=== PATIENT | female | born 1940 | race African-American/Black ===

== ENCOUNTER 2018-08-18 18:52 | Inpatient (IN) | payer MEDICARE, MEDICAID ==
[~2018-08-18] VITALS: Ht 154.9 cm; Wt 47.2 kg
--- NOTE | 2018-08-18 19:20 | NUR ---
PT BIB PA FROM SNF WITH A C/O THAT THE PT HAD WANDERED FROM THE SNF AND WAS "MISSING". PT RETURNED TO THE SNF AND WAS DISORIENTED AND AGGRESSIVE TOWARDS STAFF. PT DOES NOT KNOW WHY SHE IS HERE. 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 PT IS HERE FOR MEDICAL CLEARANCE AND ADMISSION TO [facility]. SITTER IS AT THE BEDSIDE.
[2018-08-18 19:32] LABS: BASOPHILS % (AUTO) 0.7 % (0.0-2.0); EOSINOPHILS % (AUTO) 1.1 % (0.0-6.0); HEMATOCRIT 32 % (33-45); HEMOGLOBIN 10.8 g/dL (11.5-14.8); LYMPHOCYTES # (AUTO) 1.4 /CMM (0.8-4.8); LYMPHOCYTES % (AUTO) 41.2 % (20.0-44.0); MEAN CORPUSCULAR HGB CONC 33 g/dl (31.0-36.0); MEAN CORPUSCULAR VOLUME 90 fL (82-100); MONOCYTES # (AUTO) 0.3 /CMM (0.1-1.30); MONOCYTES % (AUTO) 8.2 % (2.0-12.0); NEUTROPHILS # (AUTO) 1.7 /CMM (1.8-8.9); NEUTROPHILS % (AUTO) 48.8 % (43.0-81.0); PLATELET COUNT (AUTO) 234 /CMM (150-450); RED BLOOD CELL COUNT(AUTO) 3.61 MIL/uL (4.0-5.2); WHITE BLOOD COUNT (AUTO) 3.5 K/uL (4.3-11.0)
[2018-08-18 19:39] LABS: CALCIUM, SERUM 9.2 mg/dL (8.5-10.1); CARBON DIOXIDE 27 mmol/L (21-32); CHLORIDE 103 mmol/L (98-107); CREATININE 1.1 mg/dL (0.6-1.3); GLUCOSE 104 mg/dL (74-106); POTASSIUM 3.6 mmol/L (3.5-5.1); SODIUM SERUM 140 mmol/L (136-145); UREA NITROGEN, BLOOD 24 mg/dL (7-18)
--- NOTE | 2018-08-18 19:46 | NUR ---
GPS BED 215-B
[2018-08-18 19:52] LABS: ALANINE AMINOTRANSFERASE 31 U/L (12-78); ALBUMIN 3.2 g/dL (3.4-5.0); ALKALINE PHOSPHATASE 87 U/L (46-116); ASPARTATE AMINOTRANSFERASE 35 U/L (15-37); BILIRUBIN,TOTAL 0.2 mg/dL (0.2-1.0); TOTAL PROTEIN, SERUM 7.1 g/dL (6.4-8.2)
[2018-08-18 19:53] LABS: ACETAMINOPHEN < 5 ug/ml (10-30); ALCOHOL, BLOOD < 3 mg/dL (0-0); SALICYLATE 1.7 mg/dL (2.8-20.0)
--- NOTE | 2018-08-18 20:00 | NUR ---
URINE SAMPLE WAS OBTAINED.
--- NOTE | 2018-08-18 20:10 | NUR ---
CALLING REPORT TO [facility] NURSE.
[2018-08-18 20:22] LABS: BILIRUBIN,URINE 1+ (NEGATIVE); BLOOD, URINE NEGATIVE Ery/uL (NEGATIVE); COLOR,URINE YELLOW (YELLOW); KETONES,URINE TRACE (NEGATIVE); LEUKOCYTE ESTERASE ,URINE 2+ (NEGATIVE); NITRITE, URINE NEGATIVE (NEGATIVE); PROTEIN,URINE TRACE mg/dl (NEGATIVE); UGLUCOSE NEGATIVE (NEGATIVE); UROBILINOGEN,URINE 0.2 EU/dL (0.2)
[2018-08-18 20:26] LABS: APPEARANCE,URINE SLIGHTLY HAZY (CLEAR)
[2018-08-18 20:30] LABS: BACTERIA,URINE Few /HPF (None Seen); RBC,URINE 0-2 /HPF (0-2); SQUAMOUS EPITHELIAL CELL,UR Many /HPF (None Seen)
--- NOTE | 2018-08-18 20:41 | NUR ---
PT IS GOING TO [facility] WITH EMT AND SITTER. DR TALAVERA REVIEWED THE [facility] RESULTS AND HAS OK'D PT TO GO TO [facility].
[2018-08-18] MEDS ORDERED: MAGNESIUM HYDROXIDE 30 ML UDC PO PRN (21:30)
[2018-08-18] MEDS ORDERED: LORAZEPAM 0.5 MG TABLET PO PRN (21:30)
[2018-08-18] MEDS ORDERED: ACETAMINOPHEN 325 MG TABLET PO PRN (21:30)
[2018-08-18] MEDS ORDERED: MAG HYDROX/AL HYDROX/SIMETH 30 ML UDC PO PRN (21:30)
[2018-08-18] MEDS ORDERED: TEMAZEPAM 7.5 MG CAPSULE PO PRN (21:30)
[2018-08-18 21:46] VITALS: BP 127/73
--- NOTE | 2018-08-18 22:24 | NUR ---
ADMISSION NOTES: ADMITTED THIS 77 Y/O FEMALE PATIENT ADMIT FROM [facility] ER/INTIALLY FROM THE SNF / [facility] , PT IS ON 5150 HOLD GRAVELY DISABLE , PER HOLD RA PER HOLD THE PT. REPORTEDLY LEFT THE SNF TWO WEEKS AGO , HAS BEEN MISSING , DELUSIONAL ,AGITAED ,NON COMPLY WITH MEDS AND , DISORIENTED CONFUSED UNABLE TO CREAT PLAN FOR [facility] , UPON FACE TO FACE ASSESSMENT PATIENT IS A&O X 1 DISORGNIZED , CONFUSED ANXIOUS,DISHELVED, PARANOIA, PT. RESPONDING TO AH/VH , UNCOOPERTIVE, EASILY GETS AGITATED, PT. IS POOR HISTORIAN, POOR INSIGHT ,POOR JUDGEMENT , POOR HYGINE , PT. REFUSED TO TAKE SHOWER AT THIS TIME ,V/S MD VINICIUS AWARE AND NOTIFIED OF THE ADMISSION, PT. REFUSED SKIN ASSESSMENT PER PT. MY SKIN IS FINE I DON,T WANT CHECK AND REFUSED PICTURES TAKEN, BELONGINGS CONTRABAND WERE DONE , PT. DIDNOT PROVIDE ANY MEDIACL HISTORY AND LIST OF MEDICATION ,NURSING ASSESSMENT DONE ,PT. RIGHTS DISCUSS BY SERVICE LINE LAYER , PROVIDE THE PT. WITH HANDBOOK, AND MEDICATIONS GUIDE, ENVIRONMENTAL SAFETY CHECK DONE, ENCOURAGED PT. VERBALIZED ANY FEELING CONCERN TO STAFF, ORIENT TO UNIT POLICY, NO ACUTE DISTRESS NOTED,VITAL SIGNS WNL ,DENIES ANY PAIN AT THIS TIME ,WILL CONTINUE TO MONITOR FOR Q15 SAFETY AND BEHAVIOR.
--- NOTE | 2018-08-19 00:54 | NUR ---
GPS RN NOTES :PT. REFUSED KEFLEX 500 MG PO , ENCOURAGED , EXPLINED RISKS AND BENEFITS , STRONGLY, STILL REFUSED.
--- NOTE | 2018-08-19 01:30 | NUR ---
GPS RN NOTES: BERNARDA MONZON COOLING PAN TENDER HERE TO SEE THE PATIENT , NOTIFIED TO HER PT. HAS BOTH LOWER EXTRIMITES EDEMA , BUT PT. REFUSED TO ASSESS HER BOTH LOWER EXTRIMITES , DENIES ANY PAIN DISCOMFRT AT THIS TIME.
[2018-08-19 08:00] VITALS: BP 103/69
[2018-08-19] MEDS: CEPHALEXIN MONOHYDRATE 500 MG CAPSULE PO SCH ×3 (08:35→21:00)
[2018-08-19] MEDS: ENSURE ENLIVE 237 ML LIQUID (VANILLA) PO SCH ×2 (09:30→17:08)
--- NOTE | 2018-08-19 10:15 | NUR ---
SPEEDY called the pts son, Freddie ([phone]), and discussed the pts treatment plan and initial discharge plan. He stated that he would like the SW to place the pt in a SNF near his brother who lives in [place].
--- NOTE | 2018-08-19 10:52 | NUR ---
Initial Discharge Plan: Pt is currently homeless but was residing at a senior living facility two weeks prior to her admission. Per pt, she would like to return to her home with her sons. Pts son, Freddie ([phone]), stated that she does not have a home with her sons and that she lives in facilities. SW will work with the pt and the MD regarding appropriate discharge planning. SW will form a safe and proper discharge.
--- NOTE | 2018-08-19 14:53 | NUR ---
Group Note: Pt did not attend group therapy session on 08/19/18 at 2pm discussing grief and loss. Pt stated that she wanted to remain in her home and does not need therapy. Pt appeared to be guarded with her arms crossed across her chest.
[2018-08-19] MEDS: ARIPIPRAZOLE 5 MG TABLET PO SCH (16:00)
--- NOTE | 2018-08-19 19:30 | NUR ---
GPS RN NOTE, RECEIVED PATIENT AWAKE AND IN BED, NO S/S OR COMPLAINTS OF PAIN AT THIS TIME. PATIENT IS DISPLAYING NO S/S OF APPARENT DISTRESS AT THIS TIME. PATIENT BREATHING IS UNLABORED WITH EQUAL RISE AND FALL OF THE CHEST. PATIENT IS ALERT AND ORIENTED X 1-2 ON ROOM AIR WITH A SPO2 OF 97 %. PATIENT IS REFUSING MEDICATION, DISORGANIZED, ANXIOUS, UNCOOPERATIVE, PARANOID, AND NEEDS REORIENTATION. PATIENT DENIES SUICIDE AND HOMICIDAL IDEATIONS AT THIS TIME. PATIENT ASSISTED WITH TURNING AND REPOSITIONING Q2HR AND PRN FOR COMFORT AND CIRCULATION. PATIENT HAS NO NEEDS AT THIS TIME. PATIENT EDUCATED ON THE USE OF THE CALL MOREJON. PATIENT BED SIDE RAILS ARE UP X 2 FOR SAFETY, BED IS LOCKED, AND LOW WILL CONTINUE TO MONITOR AND MAINTAIN SAFETY.
--- NOTE | 2018-08-19 21:33 | NUR ---
GPS RN NOTE, PATENT REFUSED KEFLEX 500 MG PO Q12HR. OFFERED KEFLEX THREE TIMES AND STILL PATIENT REFUSED STATING, " I DON'T WON'T IT NOW I'LL TAKE IT IN THE MORNING ". EDUCATED PATIENT ON THE RISKS AND BENEFITS TAKING AND REFUSING AFOREMENTIONED MEDICATION. WILL CONTINUE TO MONITOR THIS PATIENT.
[2018-08-20 08:00] VITALS: BP 100/63
[2018-08-20] MEDS: ARIPIPRAZOLE 5 MG TABLET PO SCH ×2 (08:36→17:32)
[2018-08-20] MEDS: CEPHALEXIN MONOHYDRATE 500 MG CAPSULE PO SCH ×2 (08:36→21:20)
[2018-08-20] MEDS: ENSURE ENLIVE 237 ML LIQUID (VANILLA) PO SCH ×2 (08:37→17:32)
[2018-08-20 16:04] VITALS: BP 99/63
[2018-08-20 20:25] VITALS: BP 112/65
[2018-08-21 08:00] VITALS: BP 121/70
[2018-08-21] MEDS: ENSURE ENLIVE 237 ML LIQUID (VANILLA) PO SCH ×2 (08:03→17:00)
[2018-08-21] MEDS: CEPHALEXIN MONOHYDRATE 500 MG CAPSULE PO SCH ×2 (08:06→20:40)
[2018-08-21] MEDS: ARIPIPRAZOLE 5 MG TABLET PO SCH ×2 (08:06→16:28)
--- NOTE | 2018-08-21 08:06 | NUR ---
RN NOTE: PATIENT REFUSED MORNING MEDS (KEFLEX AND ABILIFY). SHE ASKED ME TO LEAVE THE MEDS AT BEDSIDE. WHEN I INFORMED HER THAT I COULDN'T LEAVE THE MEDICATIONS SHE REPEATEDLY STATED "GET THE FUCK OUT MY FACE BEFORE I HURT YOU".
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
--- NOTE | 2018-08-21 11:42 | NUR ---
SW returned the call of the pts son, Freddie ([phone]), and discussed the pts placement and her 72 hour hold coming to an end. SW informed him of the MD's possible decision to extend the hold to a 14 day hold. SW also informed him that this may be due to the need to stabilize the pt on her medications as well as acquire placement. Pts son stated that he would like to come visit the pt and the SW the following day because he will be in town.
--- NOTE | 2018-08-21 15:00 | NUR ---
GROUP NOTE: SW prompted pt to attend group discussing the topic of discharge planning, pt refused and stated she did not need to be part of any group, pt was irritable with flat affect.
--- NOTE | 2018-08-21 15:34 | NUR ---
RN NOTE: INFORMED DR. YOUNG OF PATIENT'S BEHAVIOR AND REFUSAL OF MEDICATIONS.
--- NOTE | 2018-08-21 15:34 | NUR ---
RN NOTE: WHEN APPROACHED, PATIENT REMAINS TO BE VERBALLY AGGRESSIVE.
[2018-08-21 16:00] VITALS: BP 135/78
--- NOTE | 2018-08-21 16:09 | NUR ---
SPEEDY faxed a referral to [facility] with attention to Iris to the fax number: [phone].
--- NOTE | 2018-08-21 16:10 | NUR ---
Ольга ([phone]) from [facility] called the SW and stated that she believed that the plan to refer the pt to a SNF is a good plan.
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
--- NOTE | 2018-08-21 20:40 | NUR ---
REFUSED CEPHALEXIN 500 MG DUE AT 2100, ENCOURAGED EXPLAINED 3X THE BENEFITS OF HER MEDICATION, STILL REFUSED
--- NOTE | 2018-08-22 07:35 | NUR ---
RN NOTES RECEIVED PT AWAKE SITTING ON THE SIDE OF THE BED. NO C/O PAIN MADE. SAFETY ENSURED
[2018-08-22 08:00] VITALS: BP 110/65
[2018-08-22] MEDS: CEPHALEXIN MONOHYDRATE 500 MG CAPSULE PO SCH ×3 (08:49→21:00)
[2018-08-22] MEDS: ARIPIPRAZOLE 5 MG TABLET PO SCH ×3 (08:49→16:20)
[2018-08-22] MEDS: ENSURE ENLIVE 237 ML LIQUID (VANILLA) PO SCH ×2 (08:49→16:29)
--- NOTE | 2018-08-22 09:44 | NUR ---
Joanie ([phone]) from [facility] called the SW and stated that the pt was accepted to their facility. SPEEDY stated that she would inform them when the pt is ready for discharge.
--- NOTE | 2018-08-22 14:25 | NUR ---
GROUP NOTE: SW prompted pt to attend group discussing the topic of support systems, but pt unable to participate in group.
[2018-08-22 16:00] VITALS: BP 113/62
--- NOTE | 2018-08-22 16:05 | NUR ---
SPEEDY called the pts son, Freddie ([phone]), and informed him that the pt was accepted to [facility].
[2018-08-22 20:15] VITALS: BP 125/56
--- NOTE | 2018-08-22 22:18 | NUR ---
REFUSED KEFLEX 500 MG CAP PO DUE FOR 2100 TONIGHT, EDUCATED AND ENCOURAGED TO TAKE MEDS. EXPLAINED THE BENEFITS, STILL REFUSED.
[2018-08-23 08:00] VITALS: BP 107/63
[2018-08-23] MEDS: ARIPIPRAZOLE 5 MG TABLET PO SCH ×2 (08:08→16:08)
[2018-08-23] MEDS: CEPHALEXIN MONOHYDRATE 500 MG CAPSULE PO SCH ×2 (08:08→20:32)
[2018-08-23] MEDS: ENSURE ENLIVE 237 ML LIQUID (VANILLA) PO SCH ×2 (08:09→16:09)
[2018-08-23 16:00] VITALS: BP 119/63
--- NOTE | 2018-08-23 16:32 | NUR ---
RN NOTE: PATIENT IS MORE COMPLIANT WITH MEDICATION MANAGEMENT AND PLAN OF CARE TODAY AND TOOK HER 1500 MEDICATION DUE. PATIENT IS STILL EASILY AGITATED BUT ABLE TO BE RE-DIRECTED MORE THAN PREVIOUS ATTEMPTS.
[2018-08-23 20:00] VITALS: BP 105/54
--- NOTE | 2018-08-23 20:15 | NUR ---
ASKED PATIENT IF SHE IS READY FOR HER KEFLEX 500 MG DUE FOR 2100 TONIGHT. 

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
[2018-08-24 08:00] VITALS: BP 98/55
[2018-08-24] MEDS: CEPHALEXIN MONOHYDRATE 500 MG CAPSULE PO SCH ×2 (09:00→21:56)
[2018-08-24] MEDS: ARIPIPRAZOLE 5 MG TABLET PO SCH ×2 (09:00→15:37)
[2018-08-24] MEDS: ENSURE ENLIVE 237 ML LIQUID (VANILLA) PO SCH ×2 (09:54→15:41)
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
[2018-08-24 16:02] VITALS: BP 100/60
[2018-08-24 20:05] VITALS: BP 104/56
[2018-08-24] MEDS: SENNOSIDES/DOCUSATE SODIUM 1 TAB TABLET PO SCH (21:55)
[2018-08-25] MEDS ORDERED: diphenhydrAMINE HCL 50 MG/ML VIAL IM ONE (02:00)
[2018-08-25] MEDS ORDERED: HALOPERIDOL LACTATE INJ 5 MG/ML VIAL IM ONE (02:00)
[2018-08-25] MEDS ORDERED: LORAZEPAM INJ 2 MG/ML VIAL IM ONE (02:00)
[2018-08-25] MEDS ORDERED: diphenhydrAMINE HCL 50 MG/ML VIAL IM PRN (02:00)
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
[2018-08-25 08:00] VITALS: BP 114/54
[2018-08-25] MEDS: CEPHALEXIN MONOHYDRATE 500 MG CAPSULE PO SCH ×2 (08:04→20:10)
[2018-08-25] MEDS: ARIPIPRAZOLE 5 MG TABLET PO SCH ×2 (08:04→16:03)
[2018-08-25] MEDS: ENSURE ENLIVE 237 ML LIQUID (VANILLA) PO SCH ×2 (08:07→16:03)
[2018-08-25] MEDS: DIVALPROEX SODIUM 125 MG CAP.SPRINK PO SCH ×3 (11:44→16:04)
--- NOTE | 2018-08-25 12:05 | NUR ---
RN NOTE: PATIENT HAS REFUSED HER 1000 AND 1300 DEPAKOTE AND STATED SHE DOESN'T NEED IT.
--- NOTE | 2018-08-25 15:49 | NUR ---
GROUP NOTE: SW prompted pt to attend group discussing the topic of personal strengths and coping skills, but pt was sleeping and not easily aroused.
[2018-08-25 16:00] VITALS: BP 111/64
--- NOTE | 2018-08-25 16:04 | NUR ---
RN NOTE: PATIENT IS REFUSING 1700 DEPAKOTE
[2018-08-25 19:49] VITALS: BP 116/63
--- NOTE | 2018-08-25 20:10 | NUR ---
Talked to Belen, she stated that she had a bowel movement in the morning, she refused to take her Senna for tonight.
--- NOTE | 2018-08-25 20:12 | NUR ---
PATIENT REFUSED TO TAKE HER KEFLEX FOR 2100, STATED, "GET THE HELL OUT OF MY FACE, SHIT."
--- NOTE | 2018-08-25 20:34 | NUR ---
VERBALLY ABUSIVE LOUD AND TALKS TO HERSELF AT THIS TIME.
[2018-08-25] MEDS: SENNOSIDES/DOCUSATE SODIUM 1 TAB TABLET PO SCH (21:24)
[2018-08-26 08:00] VITALS: BP 123/69
[2018-08-26] MEDS: ARIPIPRAZOLE 5 MG TABLET PO SCH ×2 (08:03→16:17)
[2018-08-26] MEDS: ENSURE ENLIVE 237 ML LIQUID (VANILLA) PO SCH ×2 (08:04→16:19)
[2018-08-26] MEDS: DIVALPROEX SODIUM 125 MG CAP.SPRINK PO SCH ×2 (08:04→12:23)
[2018-08-26] MEDS: CEPHALEXIN MONOHYDRATE 500 MG CAPSULE PO SCH (08:04)
--- NOTE | 2018-08-26 08:05 | NUR ---
RN NOTE: PATIENT REFUSED KEFLEX AND DEPAKOTE, TOLD HER TO GIVE ME HER ABILIFY AND GET THE HELL OUT HER FACE.
--- NOTE | 2018-08-26 12:23 | NUR ---
RN NOTE: PATIENT REFUSED 1300 DEPAKOTE.
--- NOTE | 2018-08-26 14:13 | NUR ---
RN NOTE: INFORMED DR. YOUNG PATIENT HAS BEEN REFUSING DEPAKOTE. HE STATED LONG SHES TAKING THE ABILIFY SHES FINE.
--- NOTE | 2018-08-26 15:28 | NUR ---
GROUP NOTE: SW prompted pt to attend group on 08/26/18 at 2:00pm discussing the topic of goal setting for while they are in the hospital and after discharge, but pt unable to participate in group.
[2018-08-26 16:00] VITALS: BP 118/56
[2018-08-26] MEDS: VALPROIC ACID 250 MG/5 ML UDC PO SCH ×3 (16:17→21:18)
--- NOTE | 2018-08-26 19:25 | NUR ---
GPS RN NOTE, RECEIVED PATIENT AWAKE AND IN BED, NO S/S OR COMPLAINTS OF PAIN AT THIS TIME. PATIENT IS DISPLAYING NO S/S OF APPARENT DISTRESS AT THIS TIME. PATIENT BREATHING IS UNLABORED WITH EQUAL RISE AND FALL OF THE CHEST. PATIENT IS ALERT AND ORIENTED X 1-2 ON ROOM AIR WITH A SPO2 OF 97 %. PATIENT IS MED SELECTIVE, DISORGANIZED, ANXIOUS, COOPERATIVE, PARANOID, AND NEEDS REORIENTATION. PATIENT DENIES SUICIDE AND HOMICIDAL IDEATIONS AT THIS TIME. PATIENT ASSISTED WITH TURNING AND REPOSITIONING Q2HR AND PRN FOR COMFORT AND CIRCULATION. PATIENT HAS NO NEEDS AT THIS TIME. PATIENT EDUCATED ON THE USE OF THE CALL MOREJON. PATIENT BED SIDE RAILS ARE UP X 2 FOR SAFETY, BED IS LOCKED, AND LOW WILL CONTINUE TO MONITOR AND MAINTAIN SAFETY.
[2018-08-26 20:11] VITALS: BP 113/61
[2018-08-26] MEDS: SENNOSIDES/DOCUSATE SODIUM 1 TAB TABLET PO SCH (21:25)
[2018-08-27 08:00] VITALS: BP 114/64
[2018-08-27] MEDS: ARIPIPRAZOLE 5 MG TABLET PO SCH ×2 (08:24→16:18)
[2018-08-27] MEDS: VALPROIC ACID 250 MG/5 ML UDC PO SCH ×2 (08:24→21:20)
[2018-08-27] MEDS: ENSURE ENLIVE 237 ML LIQUID (VANILLA) PO SCH ×2 (08:54→17:20)
--- NOTE | 2018-08-27 09:06 | NUR ---
SPEEDY informed Iris ([phone]) at [facility] that pt will be discharging on 08/28/18 at 12:30pm.
--- NOTE | 2018-08-27 12:13 | NUR ---
SW called the pts son, Freddie ([phone]), and informed him pt will discharged 08/27/18 at 12:00pm to [facility]. Son agreed with discharge plan.
--- NOTE | 2018-08-27 13:20 | NUR ---
GROUP NOTE: SW prompted pt to attend group on 08/27/18 at 12:30pm discussing stress management techniques for while they are in the hospital and after discharge, but pt unable to participate in group as she is preparing for discharge.
[2018-08-27 16:41] VITALS: BP 128/56
[2018-08-27 20:00] VITALS: BP 122/60
[2018-08-27] MEDS: SENNOSIDES/DOCUSATE SODIUM 1 TAB TABLET PO SCH (21:23)
[2018-08-28 08:00] VITALS: BP 124/57
[2018-08-28] MEDS: VALPROIC ACID 250 MG/5 ML UDC PO SCH (08:21)
[2018-08-28] MEDS: ARIPIPRAZOLE 5 MG TABLET PO SCH (08:21)
[2018-08-28] MEDS: ENSURE ENLIVE 237 ML LIQUID (VANILLA) PO SCH (08:21)
--- NOTE | 2018-08-28 08:38 | NUR ---
DR. YOUNG GAVE AN ORDER TO D/C HOLD AND D/C TO [facility] ([facility]), TO CONTINUE SAME MEDS INCLUDING PRN AND TO FOLLOW UP WITH PSYCH AND MEDICAL DOCTORS. PT. WITHOUT DISTRESS, DENIES SUICIDAL AND HOMICIDAL, BELONGINGS READY AND DISCHARGE PAPERS READY.
--- NOTE | 2018-08-28 09:41 | NUR ---
Basilia Mendez made aware of the discharge and reconciled meds. Report given to Liya over the facility. Addendum: 08/28/18 at 1221 by JESSE SILVERIO RN signed the discharge papers. Addendum: 08/28/18 at 1250 by JESSE SILVERIO RN bg [facility] is aware of the discharge.
--- NOTE | 2018-08-28 13:05 | NUR ---
Pt. left the unit via ambulance with belongings and transported via a gurney. Left without distress and on stable condition. V/S taken: BP 123/59, WI 60, RR 18, temp 97.7 and oxygen sat 100%
--- NOTE | 2018-08-29 11:52 | NUR ---
Discharge Note: Pt was discharged at 12:00pm via [facility] to [facility] ([facility]) Address: [address] [place] [id number] . Pts son, Freddie ([phone]) was notified. Upon discharge, the nursing staff confirmed and documented that the pt denied both suicidal and homicidal ideation as well as auditory and visual hallucinations. Pt will be under the care of her psychiatrist, Dr. Jorge Alberto Carroll, located at [address] [address] and her individual pension consultant, Dr. Miguel Floyd, located at [address], [place] [address] .
== END 2018-08-28 13:05 | DRG 885 ==
LOC: ER 18:57 → GPS 19:50
PROVIDERS: ADMIT Psychiatry & Neurology Psychiatry; ATTEND Nurse Practitioner Acute Care
DX: F29 Unspecified psychosis not due to a substance or known physiological condition (principal); G93.41 Metabolic encephalopathy; E44.1 Mild protein-calorie malnutrition; N39.0 Urinary tract infection, site not specified; D63.8 Anemia in other chronic diseases classified elsewhere; D72.819 Decreased white blood cell count, unspecified; F03.90 Unspecified dementia, unspecified severity, without behavioral disturbance, psychotic disturbance, mood disturbance, and anxiety; R79.89 Other specified abnormal findings of blood chemistry; Z91.14 Patient's other noncompliance with medication regimen; K59.00 Constipation, unspecified
CPT/HCPCS: 36415; 71045-TC; 80048-TC; 80076-TC; 80305; 81000-TC; 85025-TC; 87081-TC; 87086-TC; G0480; J1200; J1630; J2060